=== PATIENT | female | born 1990 | race Caucasian/White ===

== ENCOUNTER 2017-11-02 06:35 | Emergency (ER) | payer OTHER, MEDICAID ==
[~2017-11-02] VITALS: Ht 160 cm; Wt 81.7 kg
[~2017-11-02 06:35] MED LIST: ACETAMINOPHEN-1 EAC1 PO; AUGMENTIN 875875 MG PO; BUPROPION; CORTISPORIN OTI10 M2 OTIC; IBUPROFEN 800800 M1 PO; MEDROL DOSPAK21 TA1 PO; NOHOMEMEDICATIONS; PENICILLIN V P500 MG PO; TRINATE TABLET1 TAB PO; VICODIN 5-5001 EACH PO; ZITHROMAX500 MG PO; ZOFRAN ODT4 MG DISSOLVE
[2017-11-02 06:38] VITALS: BP 145/90
[2017-11-02] MEDS ORDERED: TYLENOL325 MG PO (06:40)
[2017-11-02] MEDS ORDERED: AMOXICILLIN875 MG PO (06:57)
[2017-11-02] MEDS ORDERED: HYDROCODONE-ACE15 ML PO (06:57)
== END 2017-11-02 07:03 | disposition home or self-care (01) ==
LOC: M.ERS 06:35
DX: J02.0 Streptococcal pharyngitis (principal); Z90.49 Acquired absence of other specified parts of digestive tract

== ENCOUNTER 2017-12-03 20:24 | Emergency (ER) | payer OTHER, MEDICAID ==
[~2017-12-03] VITALS: Ht 160 cm; Wt 90.7 kg
[~2017-12-03 20:24] MED LIST changes: +AMOXICILLIN875 MG PO; +HYDROCODONE-ACE15 ML PO; +TYLENOL325 MG PO
[2017-12-03] MEDS ORDERED: LORATIDINE 10 M10 M1 PO (20:47)
[2017-12-03] MEDS ORDERED: IBUPROFEN 800800 M1 PO (20:47)
[2017-12-03] MEDS ORDERED: KEFLEX500 M1 PO (20:47)
[2017-12-03] MEDS ORDERED: AFRIN15 ML NS (20:47)
[2017-12-03 20:56] VITALS: BP 140/91
== END 2017-12-03 20:57 | disposition home or self-care (01) ==
LOC: M.ERS 20:24
DX: H66.92 Otitis media, unspecified, left ear (principal); Z90.49 Acquired absence of other specified parts of digestive tract

== ENCOUNTER 2018-05-01 21:08 | Emergency (ER) | payer OTHER, MEDICAID ==
[~2018-05-01] VITALS: Ht 160 cm; Wt 93.0 kg
[~2018-05-01 21:08] MED LIST changes: +AFRIN15 ML NS; +KEFLEX500 M1 PO; +LORATIDINE 10 M10 M1 PO
[2018-05-01] MEDS ORDERED: KEFLEX500 M1 PO (21:14)
[2018-05-01 21:46] VITALS: BP 146/90
== END 2018-05-01 21:47 | disposition home or self-care (01) ==
LOC: M.ERS 21:08
DX: L02.611 Cutaneous abscess of right foot (principal); Z90.49 Acquired absence of other specified parts of digestive tract

== ENCOUNTER 2018-11-08 09:54 | Emergency (ER) | payer OTHER ==
[~2018-11-08] VITALS: Ht 160 cm; Wt 93.4 kg
[2018-11-08] MEDS ORDERED: BENZONATATE200 MG PO (10:21)
[2018-11-08 10:32] VITALS: BP 154/86
== END 2018-11-08 10:33 | disposition home or self-care (01) ==
LOC: M.ERS 09:54
DX: J06.9 Acute upper respiratory infection, unspecified (principal); F17.200 Nicotine dependence, unspecified, uncomplicated; Z90.49 Acquired absence of other specified parts of digestive tract

== ENCOUNTER 2019-09-04 20:12 | Emergency (ER) | payer OTHER ==
[~2019-09-04] VITALS: Ht 160 cm; Wt 90.7 kg
[~2019-09-04 20:12] MED LIST changes: +BENZONATATE200 MG PO
[2019-09-04] MEDS ORDERED: ZANAFLEX4 MG PO (21:23)
[2019-09-04] MEDS ORDERED: IBUPROFEN 800800 M1 PO (21:23)
[2019-09-04 21:44] VITALS: BP 139/74
== END 2019-09-04 21:44 | disposition home or self-care (01) ==
LOC: M.ERS 20:12
DX: S29.012A Strain of muscle and tendon of back wall of thorax, initial encounter (principal); S63.591A Other specified sprain of right wrist, initial encounter; S60.221A Contusion of right hand, initial encounter; Z90.49 Acquired absence of other specified parts of digestive tract; F17.200 Nicotine dependence, unspecified, uncomplicated; V47.5XXA Car driver injured in collision with fixed or stationary object in traffic accident, initial encounter; Y92.89 Other specified places as the place of occurrence of the external cause; Y93.89 Activity, other specified; Y99.8 Other external cause status

== ENCOUNTER 2019-12-30 16:43 | Emergency (ER) | payer OTHER ==
[~2019-12-30] VITALS: Ht 160 cm; Wt 81.7 kg
[~2019-12-30 16:43] MED LIST changes: +ZANAFLEX4 MG PO
[2019-12-30] MEDS ORDERED: AMOXICILLIN 50500 MG PO (17:20)
[2019-12-30 17:30] VITALS: BP 179/97
== END 2019-12-30 17:30 | disposition home or self-care (01) ==
LOC: M.ERS 16:43
DX: J02.0 Streptococcal pharyngitis (principal); Z90.49 Acquired absence of other specified parts of digestive tract; Z98.51 Tubal ligation status